=== PATIENT | female | born 1960 | race Caucasian/White ===

== ENCOUNTER → 2017-07-28 | Outpatient (CLI) | payer OTHER ==
[~2017-07-28] MED LIST: ASPI-390 PO; BUPR-79 PO; CITA40TA12 PO; RIZA10TA18 PO; SUMA6KIT SQ; TOPI100T20 PO
[2017-07-28 13:20] LABS: BLOOD UREA NITROGEN 12 mg/dl (7-18); CALCIUM 9.6 mg/dl (8.5-10.1); CARBON DIOXIDE 28 mmol/L (21-32); CHOLESTEROL 208 mg/dl (0-200); CREATININE 1.22 mg/dl (0.60-1.20); GLUCOSE 100 mg/dl (70-99); SODIUM 140 mmol/L (136-145)
[2017-07-28 13:30] LABS: LDL CHOLESTEROL CALCULATED 133 mg/dl
== END | disposition home or self-care (01) ==
LOC: C.LABPVFM 07:15
PROVIDERS: ATTEND Nurse Practitioner
DX: E78.5 Hyperlipidemia, unspecified (principal); I10 Essential (primary) hypertension; F32.9 Major depressive disorder, single episode, unspecified; R53.83 Other fatigue

== ENCOUNTER → 2017-09-12 | Outpatient (CLI) | payer OTHER ==
--- NOTE | 2017-09-12 16:41 | DIAGNOSTIC IMAGING REPORT ---
PELVIC COMPLETE NON OB CLINICAL HISTORY: 57 years-old Female presenting with POST MENOPAUSAL VAGINAL BLEEDING, , postmenopausal 3-4 years ago, now with abnormal bleeding, not on hormone replacement therapy, intermittent pelvic pain. TECHNIQUE: Real-time grayscale and color and spectral Doppler ultrasound imaging of the pelvis was performed first using a transabdominal probe and subsequently transvaginal for better characterization. COMPARISON: 04/29/2011. FINDINGS: Uterus: Normal. Anteverted. The uterus measures 8.8 x 3.4 x 4.6 cm. Endometrial stripe measures 10 mm in thickness. Endometrium heterogeneous with slightly increased flow on color Doppler. Cervix contains multiple nabothian cysts. Right adnexa: Right ovary not visualized. Left adnexa: Left ovary normal for age with expected atrophy. Left ovary measures 0.9 x 1.5 x 0.7 cm. Normal color Doppler flow and arterial and venous waveforms within the ovarian parenchyma. Other: No free fluid. IMPRESSION: 1. Abnormally thick endometrium for the patient's postmenopausal status and in the setting of postmenopausal bleeding. The primary concern is endometrial neoplasm though this could represent endometrial hyperplasia or an endometrial polyp. Further evaluation recommended with gynecologic consultation for possible endometrial biopsy or saline infusion sonohysterogram. The report will be called/faxed according to standard departmental protocol. Electronically signed by: Leighton Dickerson M.D. 09/12/2017 4:39 PM Dictated Date/Time: 09/12/2017 4:37 PM
== END | disposition home or self-care (01) ==
LOC: C.ULTR 15:28
PROVIDERS: ATTEND Nurse Practitioner
DX: N95.0 Postmenopausal bleeding (principal)

== ENCOUNTER → 2017-09-19 | Outpatient (CLI) | payer OTHER ==
[~2017-09-19] MED LIST changes: +CHOL1000 PO; +SERT1TAB71 PO
== END | disposition home or self-care (01) ==
LOC: C.PATHSPEC 18:07
PROVIDERS: ATTEND Obstetrics & Gynecology
DX: N95.0 Postmenopausal bleeding (principal)

== ENCOUNTER → 2017-10-10 | Day surgery (SDC) | payer OTHER ==
[2017-09-30 12:41] VITALS: Ht 157.5 cm; Wt 79.8 kg
[2017-10-04 17:37] LABS: BASO % 0.5 %; BASO ABS # 0.03 K/uL (0-0.2); EOS ABS # 0.06 K/uL (0-0.5); HEMATOCRIT 41.5 % (37-47); IG# 0.01 K/uL (0.00-0.02); LYMPH % 35.3 %; LYMPH ABS # 2.02 K/uL (1.2-3.4); MEAN CELL VOLUME 89.8 fL (80-100); MEAN CORPUSCULAR HEMOGLOBIN 30.3 pg (25-34); MEAN CORPUSCULAR HGB CONC 33.7 g/dl (32-36); MEAN PLATELET VOLUME 11.3 fL (7.4-10.4); MONO % 7.7 %; MONO ABS # 0.44 K/uL (0.11-0.59); NEUT % 55.3 %; NEUT ABS # 3.16 K/uL (1.4-6.5); PLATELET COUNT 215 K/uL (130-400); RED CELL DISTRIBUTION WIDTH CV 13.2 % (11.5-14.5); RED CELL DISTRIBUTION WIDTH SD 43.6 fL (36.4-46.3); WHITE BLOOD COUNT 5.72 K/uL (4.8-10.8)
--- NOTE | 2017-10-04 18:23 | HISTORY & PHYSICAL EXAMINATION ---
DATE OF ADMISSION: 10/10/2017 ADMITTING DIAGNOSES: 1. Postmenopausal bleeding. 2. Thickened endometrium on ultrasound. ADMISSION HISTORY: The patient is a 57-year-old G2, P2 postmenopausal female who is admitted for diagnostic hysteroscopy and D and C for postmenopausal bleeding with thickened endometrial lining. The patient states that she went through the menopause uneventfully at age 53. In March of last year and then last month, she had 2 episodes of vaginal bleeding. She discussed this with her primary care provider who ordered a pelvic ultrasound. Pelvic ultrasound showed a thickened endometrial lining. In the office, the patient underwent an endometrial biopsy which showed scant fragments of endometrial tissue. Because of the discrepancy between ultrasound and biopsy, the patient has been admitted for the above-listed procedure. PAST MEDICAL HISTORY: OB: x2. PROGRAM SUPPORT CLERK: As above. MEDICAL: Hypertension, hyperlipidemia, renal insufficiency. SURGICAL: None. ALLERGIES: None. SOCIAL HISTORY: No smoking. FAMILY HISTORY: Noncontributory. REVIEW OF SYSTEMS: As per HPI. PHYSICAL EXAMINATION: GENERAL: Shows a pleasant female, in no acute distress. VITAL SIGNS: Blood pressure 136/88 and weight of 177 pounds. HEENT: Unremarkable. NECK: Supple. LUNGS: Clear. HEART: With a regular rhythm and rate. ABDOMEN: Soft, nontender. PELVIC: Shows mildly atrophic external genitalia. The vaginal vault is pale with no active bleeding. The cervix is atrophic. Bimanual examination shows a posterior mobile uterus. The adnexa show no palpable masses. RECTAL: Confirmatory. EXTREMITIES: Shows no deep calf tenderness. NEUROLOGIC: Grossly intact. IMPRESSION: A 57-year-old G2, P2 postmenopausal female with postmenopausal bleeding and thickened endometrium on ultrasound. PLAN: Risks, benefits, and alternatives to the surgery have been discussed. While the benefits will be evaluation of the endometrial lining and removal of any tissue, the risks are bleeding, infection, inadvertent perforation of the uterus, or failure to diagnose and/or treat the problem. The patient understands this, permit has been signed, and she wishes to proceed.
[~2017-10-10] VITALS: Ht 157.5 cm; Wt 79.8 kg
[~2017-10-10] MED LIST changes: -ASPI-390 PO; +ATROPINE SULFATE 0.1 MG/ML 5ML SYR IV PRN; -BUPR-79 PO; -CITA40TA12 PO; +DEXAMETHASONE SOD INJ 4 MG/ML VIAL ONE; +EpHEDrine SULFATE INJ 50 MG/ML AMP IV PRN; +FENTANYL CITRATE INJ 50 MCG/1 ML 2 ML VIAL IV PRN; +FENTANYL CITRATE INJ 50 MCG/1 ML 2 ML VIAL ONE; +HYDROCODONE/ACETAMIN 5/325MG TAB PO PRN; +IBUPROFEN 200 MG TAB ONE; +IBUPROFEN 600 MG TAB PO PRN; +KETOROLAC TROMETHAMINE 30 MG/ML VIAL IV. PRN; +KETOROLAC TROMETHAMINE 30 MG/ML VIAL ONE; +LACTATED RINGER'S 1000ML 1,000 ML IV SCH; +LIDOCAINE HCL 2% 2 ML VIAL (20MG/ML) ONE; +MIDAZOLAM HCL 1 MG/ML 2ML VIAL ONE; +ONDANSETRON INJ 2 MG/ML 2 ML VIAL IV PRN; +ONDANSETRON INJ 2 MG/ML 2 ML VIAL ONE; +PROPOFOL IV EMULSION 10 MG/ML 20 ML VIAL IV ONE; -RIZA10TA18 PO; +SODIUM CHLORIDE 0.9% 1000ML 1,000 ML IV SCH; -SUMA6KIT SQ; -TOPI100T20 PO
--- NOTE | 2017-10-10 06:59 | History & Physical Bridge - SC ---
H&P Re-Evaluation Bridge Note: I have examined the patient, reviewed the History & Physical and in the interval since the performance of the History & Physical I have noted the following changes of clinical significance: Included in the degfinition of D&C is the removal of any endometrial tissue consistent with a polyp.
--- NOTE | 2017-10-10 08:09 | [facility] Post Operative Brief Note ---
Immediate Operative Summary Operative Date Oct 10, 2017. Pre-Operative Diagnosis Postmenopausal bleeding Post-Operative Diagnosis Same as pre-op Endometrial polyp Procedure(s) Performed Dilatation Diagnostic Hysteroscopy, Polypectomy with Myosure Surgeon Optometrist Surgeon(s) None Estimated Blood Loss Minimal Findings See Below multiple endometrial polyps excised Specimens A.Uterine polyps Drains None Anesthesia Type General Complication(s) none Disposition Accompanied Pt To Recovery: yes Disposition: Recovery Room / PACU
--- NOTE | 2017-10-10 08:13 | Discharge Instructions-SurgCtr ---
Discharge Instructions Date of Service Oct 10, 2017. Visit Reason for Visit: Post Menopausal Bleeding, Thickened Endometrium Discharge Discharge Diagnosis / Problem: same Discharge Goals Goal(s): Therapeutic intervention Activity Recommendations Activity Limitations: as noted below Anesthesia . Post Anesthesia Instructions: If you have had General Anesthesia or IV Sedation: * Do not drive today. * Resume driving when surgeon permits. * Do not make important decisions or sign legal documents today. * Call surgeon for: 1. Temperature elevations greater than 101 degrees F. 2. Uncontrollable pain. 3. Excessive bleeding. 4. Persistent nausea and vomiting. 5. Medication intolerance (nausea, vomiting or rash). * For nausea and vomiting use only clear liquids such as: tea, soda, bouillon until nausea subsides, then gradually increase diet as tolerated. * If you have any concerns or questions, call your surgeon's office. If physician is unavailable and it is an emergency, call 911 or go to the nearest emergency room. . Instructions / Follow-Up Instructions / Follow-Up ACTIVITY RECOMMENDATIONS: * Avoid tampons, douching, hot tubs, pools, and intercourse until bleeding has stopped. * May shower as usual. * No strenuous activity for 24-48 hours. After 24-48 hours, you may do anything you feel like doing (driving and sports are okay). SPECIAL CARE INSTRUCTIONS: Special Diet: * Mild nausea may occur in the immediate post-operative period. * Take clear liquids such as tea, cola or bouillon until all nausea has subsided; you may then resume your normal diet. Special Care: * Light bleeding and vaginal spotting can last from a few days to 3-4 weeks. Call your doctor if bleeding becomes heavier than the heaviest part of your period. * Check your temperature twice a day for one week. If it goes above 100.4 degrees Fahrenheit (38.0 Celsius), notify your doctor. * Call your doctor's office for an appointment for 6 weeks after your surgery. FOLLOW-UP VISIT: Call your doctor's office for an appointment for 6 weeks after your surgery. Diet Recommendations Home Diet: resume previous diet Procedures Procedures Performed: Dilatation Diagnostic Hysteroscopy, Polypectomy with Myosure Pending Studies Studies pending at discharge: yes List of pending studies: Pathology Medical Emergencies . Who to Call and When: Medical Emergencies: If at any time you feel your situation is an emergency, please call 911 immediately. . Non-Emergent Contact Non-Emergency issues call your: Lead Network Engineer Call Non-Emergent contact if: temperature is above 100.5 . . "Provider Documentation" section prepared by Matt Gan. .
--- NOTE | 2017-10-10 08:57 | OPERATIVE REPORT ---
DATE OF OPERATION: 10/10/2017 PREOPERATIVE DIAGNOSES: 1. Postmenopausal bleeding. 2. Thickened endometrium. POSTOPERATIVE DIAGNOSES: 1. Same. 2. Multiple endometrial polyps. PROCEDURES PERFORMED: 1. Diagnostic hysteroscopy. 2. MyoSure polypectomy. SURGEON: Matt Gan MD ANESTHESIA: General. FINDINGS: Hysteroscopic examination of the endometrial lining showed a denuded endometrium with multiple endometrial polyps, polyps resected with the MyoSure. Fluid deficit for the procedure 150 mL. PROCEDURE IN DETAIL: The patient was taken to the operating room and after general anesthesia, was placed in dorsal lithotomy position and draped and prepped in the usual fashion. The bladder was drained of any residual urine. A single tooth tenaculum was used to grasp the anterior lip of the cervix. The uterine cavity was sounded to a depth of 8 cm and the cervical os was dilated with Hoang dilators to a Hoang #[id number]. The MyoSure hysteroscope was inserted into the endometrial cavity with the description as above. Resection scope was inserted and the polyps were excised and sent for pathological evaluation. Denuded endometrium noted. Fluid deficit for the procedure 150 mL. Instruments were removed from the cervix and the patient was taken to recovery room in satisfactory condition. I attest to the content of the Intraoperative Record and any orders documented therein. Any exception s are noted below.
--- NOTE | 2017-10-10 08:57 | Anesthesiology Progress Note ---
Anesthesia Post Op Note Date & Time Oct 10, 2017 at 08:57 Vital Signs Pain Intensity: 0 Vital Signs Past 12 Hours Date Time Temp Pulse Resp B/P (MAP) Pulse Ox O2 Delivery O2 Flow Rate FiO2 10/10/17 08:48 64 12 96 10/10/17 08:48 36.7 64 12 10/10/17 08:46 149/91 10/10/17 08:43 65 12 10/10/17 08:43 66 12 97 10/10/17 08:41 129/83 10/10/17 08:38 65 11 99 10/10/17 08:38 65 11 10/10/17 08:36 140/92 10/10/17 08:33 66 11 98 10/10/17 08:33 67 11 10/10/17 08:31 137/84 10/10/17 08:28 69 11 10/10/17 08:28 69 11 97 10/10/17 08:26 137/86 10/10/17 08:23 71 11 10/10/17 08:23 69 11 97 10/10/17 08:21 146/87 10/10/17 08:19 136/84 10/10/17 08:18 36.3 70 12 136/84 98 Room Air 10/10/17 06:50 37.0 76 22 141/88 (105) 95 Room Air Notes Mental Status: alert / awake / arousable, participated in evaluation Pt Amnestic to Procedure: Yes Nausea / Vomiting: adequately controlled Pain: adequately controlled Airway Patency, RR, SpO2: stable & adequate BP & HR: stable & adequate Hydration State: stable & adequate Anesthetic Complications: no major complications apparent
[2017-10-10 09:06] VITALS: TEMP 36.7
[2017-10-10 09:39] VITALS: BP 167/97; PULSE 55; O2SAT 98
== END | disposition home or self-care (01) ==
LOC: X.SURG 06:36
PROVIDERS: ATTEND Obstetrics & Gynecology
DX: N95.0 Postmenopausal bleeding (principal); N84.0 Polyp of corpus uteri; I25.10 Atherosclerotic heart disease of native coronary artery without angina pectoris; K21.9 Gastro-esophageal reflux disease without esophagitis; I12.9 Hypertensive chronic kidney disease with stage 1 through stage 4 chronic kidney disease, or unspecified chronic kidney disease; N18.9 Chronic kidney disease, unspecified; E78.5 Hyperlipidemia, unspecified